=== PATIENT | male | born 1985 | race Caucasian/White ===

== ENCOUNTER → 2020-10-14 09:18 | Outpatient (CLI) | payer BC, SELFPAY ==
--- NOTE | 2020-10-14 | ASPOS_PTH ---
PATIENT: ARBEN CARMEN LOC: [facility] U#:[id number] AGE/SX: 40/M ROOM: RE10/14/[address]: Dr. Jovanni Lopez MD : 1985 BED: DIS: SPEC #: [id number] RECD: 10/14/20 10:59 STATUS: FRED NILA #: [id number] SADE: 10/14/20 00:[address]: Jovanni Lopez DEPT: CYTOLOGY RECD BY: Mary Starkey ENTERED: 10/14/20 11:00 SP TYPE: ASP HERE OTHR DR: Dr. 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 AM:adrian 10/15/2020 COMMENT The specimen is evaluated at the time of FNA by Dr. Lugo. Immediate Evaluation = Pleomorphic adenoma. CYTOLOGY STUDY Slides are reviewed. CYTOLOGY GROSS Received is 0.2 ml of reddish-chatterjee material labeled with the patient's name, and designated right parotid tumor. Four imprints and two paps are made from the submitted fluid and the rest is added to [employer] for cell block preparation. Submitted for cytology study. / AM:adrian 10/14/2020 TC:1 CPT: 11167, 54951, 89586, 41694
== END ==
PROVIDERS: PCP Student in an Organized Health Care Education/Training Program; Referring Provider Otolaryngology; Visit Provider Otolaryngology
DX: K11.8 Other diseases of salivary glands (principal)
CPT/HCPCS: 10021; 88161; 88305

== ENCOUNTER 2020-12-29 06:39 | Day surgery (SDC) | payer BC, SELFPAY ==
[2020-12-29] VITALS (9 sets, daily range): BP systolic 117–154; BP diastolic 70–106; PULSE 60–110; RESP 14–16; TEMP 36.3–37.9; O2SAT 95–97; BMI 33.0
--- NOTE | 2020-12-29 | PAR_PTH ---
PATIENT: ARBEN CARMEN [place] [facility] [place][id number] AGE/SX: 35/M ROOM: RE12/29/[address]: Dr. Jovanni Lopez MD : 1985 BED: DIS: 12/29/2020 SPEC #: [id number] RECD: 12/29/20 14:07 STATUS: FRED REEva #: [id number] SADE: 12/29/20 00:[address]: Jovanni Lopez DEPT: SURGICAL PATHOLOGY RECD BY: Annalee Arango ENTERED: 12/29/20 15:04 SP TYPE: PAROTID OTHR DR: Dr. Devante Henning DO Tissues: A - Parotid gland, NOS B - Parotid gland, NOS C - Parotid gland, NOS Procedures: Special Stain Group II Surgery Specimen Level IV Surgery Specimen Level V Imprint (control) HEADER OPERATION: Parotidectomy PRE-OP DIAGNOSIS: Benign neoplasm of parotid gland TISSUE SUBMITTED: A - Lymph node from right parotid superficial lobe, B - Right parotid, long suture - superficial lobe, C - Right parotid tumor and deep lobe - short suture MICROSCOPIC DIAGNOSIS A. Lymph node from right parotid superficial lobe, biopsy: A benign lymph node with reactive changes. Negative for involvement by lymphoma. B. Right parotid mass, superficial lobe, parotidectomy: Major salivary gland tissue with focal mild chronic inflammation. One benign lymph node with reactive changes. Negative for malignancy. C. Right parotid tumor and deep lobe, parotidectomy: Pleomorphic adenoma (1.5 cm in diameter). One benign lymph node with reactive changes. Negative for malignancy. SJ:rg 12/31/2020 COMMENT A. The specimen is evaluated at the time of touch imprint by Dr. Hartman. Immediate Evaluation = A few lymphocytes are noted. A. Flow cytometry study from [facility] was cancelled due to no viable cells present. Please make reference to previous specimen ([id number]) fine needle aspiration, right parotid mass with diagnosis of ?pleomorphic adenoma.? Case has been reviewed in consultation with Dr. Lugo who concurs with the above diagnosis. IDC:AM MICROSCOPIC DESCRIPTION Slides are reviewed. GROSS DESCRIPTION A - Received fresh for lymphoma protocol labeled with the patient's name is a specimen designated lymph node from right parotid superficial lobe. The specimen consists of an ovoid piece of chatterjee soft tissue measuring 0.7 x 0.5 x 0.3 cm. The specimen is bisected. Two touch imprints are prepared. A section is submitted for flow cytometry study. Rest of the specimen is submitted in one cassette. B - Received fresh labeled with the patient's name and designated right parotid mass, long suture - superficial lobe. The specimen consists of a piece of glandular tissue weighing 7.2 gm and measuring 4.5 x 3 x 1.2 cm. A small chatterjee nodule is noted at one edge of the specimen measuring 0.5 cm in greatest dimension. The entire specimen is submitted in six cassettes from one end to another end. C - Received fresh labeled with the patient's name and designated right parotid tumor and deep lobe - short suture.? The specimen consists of a piece of glandular tissue weighing 3.6 gm and measuring 3 x 2.5 x 1.5 cm. The specimen is inked and serially sectioned and reveals a chatterjee nodule measuring 1.5 cm in diameter. The entire specimen is submitted in four cassettes from one end to another end. / SJ:adrian 12/29/20 TC:1 CPT: 54535, 38575 x2, 29822
[2020-12-29] MEDS: Lactated Ringers 1,000 ML 100 ML IV (07:49)
[2020-12-29] MEDS: Mupirocin Ointment 22gm Tube 1 APPLIC (14:17)
[2020-12-29] MEDS: Lidocaine 1% /Epi 1:100 (20ml) 20 ML Vial (14:18)
--- NOTE | 2020-12-29 15:24 | PCM.DC ---
Discharge Instructions Diet Discharge Diet: No restrictions Activity Discharge Activity: May not drive while taking narcotic pain medications. May shower in (days): 2 Dressing / Incision Call your doctor if your incision/area has: Increased Redness and Foul Smelling Discharge Additional Dressing/Incision Instructions:: mupirocin to facial incision twice daily. record CHAUNCEY output. wear abdominal binder. will give further instructions in clinic tomorrow. Follow Up Care Please Follow Up With: edie When: tomorr, monday Test Results: Test results from this visit will be discussed in further detail at your follow-up appointment, if applicable. Discharge Plan Admission Attending Provider: Edwardo Lopez Primary Care Provider: Devante Henning Discharge Orders/Prescriptions Prescriptions: No Action cholecalciferol (vitamin D3) 1,250 mcg (50,000 unit) capsule 1,250 mcg PO QWEEK RF: 0 Disposition Discharge Orders: Discharge Patient (Routine); Ordered 12/29/20 Ordered By: Dr. Edwardo Lopez
--- NOTE | 2020-12-29 15:28 | PCM.OPRPT ---
Problems Associated Problem List Diagnoses (1) Mass of parotid gland: Report of Operation Date of Procedure: 12/29/20 Pre-Operative Diagnosis: right parotid mass Post-Operative Diagnosis: right parotid mass Surgery/Procedure Performed:: 1. total parotidectomy, right 2. abdominal fat graft 3. superficial musculoaponeurotic system flap Surgeon: Edwardo Lopez veterinary pharmacologist: Dioni Stark Type of Anesthesia: General Specimen's removed: 1. right superficial parotid 2. right deep parotid 3. parotid lymph nodes, right Drains: darrel king Description of Procedure: on the day of the procedure, after appropriate informed consent was obtained, the patient was brought to the operating room and placed in supine position on the operating table. he was placed under general endotracheal anesthesia by the anesthesiologist. the endotracheal tube was secured. facial nerve electrodes were placed on the right side. the face and left lower quadrant abdominal skin were prepped and draped in sterile fashion. the preauricular area and neck were injected with lidocaine/epinephrine. a right modified madhu incision was made with a 15 blade. the preauricular skin was dissected in an intra-fat plane. a 15 blade was used to isolate the superficial musculoaponeurotic system. this was connected with the platysma with a metzenbaum scissor. the parotid-masseteric fascia was isolated. all planes were taken 5 cm anterior to the tragus given the anterior nature of the lesion. the inferior parotid was freed up from the sternocleidomastoid muscle. the posterior belly of the digastric was located. the tragal pointer was dissected in a supraperichondrial plane with an iris scissor. surrounding tissue was carefully opened and the main trunk of the facial nerve was located with a gerardo dissector 1cm inferior and deep to the tragal pointer. this was stimulated for confirmation. the trunk was dissected to the pes anserinus. the upper division was dissected with the carrillo and bipolar to its anterior most portion. the lower division was then dissected as the tumor appeared deep, to facilitate removal. after all branches were dissected, it was established that this was a lesion of the deep lobe of the parotid. additionally, there were numerous 1cm lymph nodes that looked concerning; these were removed for sectioning. the FNA returned a benign pleomorphic adenoma, but these samples were removed given the abnormal appearance of the tumor and nodes. the zygomatic and buccal branches were freed up completely and the tumor was elevated laterally without nervous injury. thus, a total parotidectomy was performed. of note, the tumor appeared to be stuck to the masseter muscle but was not invading the muscle or mandible. a good cuff of tissue was removed with the tumor. the main trunk of the facial nerve was stimulated and all branches were intact. a 4cm incision was made in the left lower quadrant with a 15 blade. using an allis clamp and metsenbaum scissor, a 6 x 4 cm abdominal fat graft was obtained. hemostasis was achieved with the bipolar. campers fascia was not violated. a krista was placed and the incision was closed with vicryl and monocryl. the fat graft was placed in the parotidectomy defect. this was carefully sutured at multiple points for stability, avoiding the facial nerve. the superficial musculoaponeurotic system flap was closed over the flap with 4-0 vicryl. a darrel king drain was placed and sutured. the madhu incision was closed with vicryl and nylon. the patient was rotated 90 degrees toward the anesthesiologist and extubated uneventfully. he was transferred to the PACU in stable condition. Admit VTE Documentation VTE Mechan Device Prophylaxis: SCD's
[2020-12-29] MEDS: HYDROcodone Bitartrate/Apap 5/325 Tablet PO (17:27)
== END 2020-12-29 18:03 | disposition home or self-care (01) ==
LOC: SDC 06:39 → AC 06:39
PROVIDERS: PCP Student in an Organized Health Care Education/Training Program; Referring Provider Otolaryngology; Visit Provider Otolaryngology
PROC: (CPT 42410; principal; 2020-12-29 07:50)
DX: D11.0 Benign neoplasm of parotid gland (principal)
CPT/HCPCS: 00100; 15769; 15829; 42415; 87426; 88305; 88307; 88313; C9803; J7120; J2405